=== PATIENT | male | born 1950 | race Caucasian/White ===

== ENCOUNTER 2021-02-22 12:35 | Inpatient (IN) ==
[2021-02-22] MEDS ORDERED: SODIUM CHLORIDE 0.9% 1,000 ML IV STA (13:13)
[2021-02-22] MEDS ORDERED: ALBUTEROL/IPRATROPIUM 3 ML NEB RESP TX STA (13:13)
[2021-02-22] MEDS ORDERED: DEXAMETHASONE 4 MG/1 ML VIAL IV STA (13:14)
[2021-02-22 14:04] LABS: Basophils # 0.1 10*3/uL (0.0-0.2); Basophils % 0.5 % (0.0-0.8); Eosinophils # 0.7 10*3/uL (0.0-0.87); Eosinophils % 4.7 % (0.00-10.9); Hematocrit 41.2 VOL% (42.0-52.0); Immature Granulocytes % 0.6 %; Immature Granulocytes Absolute 0.09 #; Lymphocytes # 2.3 10*3/uL (1.4-4.0); Lymphocytes % 15.7 % (21.2-54.2); Mean Corpuscular HGB Conc 36.4 GM/DL (32-36); Mean Corpuscular Volume 87.3 FL (87-102); Mean Platelet Volume 9.4 FL (9.6-12.0); Neutrophils % 69.5 % (38.7-73.9); Platelet Count 295 T/CUMM (130-400); Red Blood Count 4.72 MC/CUMM (3.8-5.5); Red Cell Distribution Width 11.8 % (9.3-17.3); White Blood Count 14.4 T/CUMM (4-12)
[2021-02-22 14:27] LABS: Albumin 3.8 G/DL (3.4-5.0); Bilirubin,Total 0.6 MG/DL (0.20-1.00); Calcium 9.5 MG/DL (8.5-10.1); Osmolality,Calculated 260.9 MOS/KG (273-304); Potassium 3.1 MMOL/L (3.5-5.1); Total Protein 7.5 G/DL (6.4-8.2)
[2021-02-22] MEDS ORDERED: LEVOFLOXACIN INJ 750 MG/150 ML PREMIX IV STA (15:35)
[2021-02-22] MEDS ORDERED: POTASSIUM CHLORIDE 20 MEQ TABLET PO STA (15:38)
[2021-02-22] MEDS ORDERED: DEXTROSE 50% 25 GM/50 ML VIAL IV PRN (18:08)
[2021-02-22] MEDS ORDERED: ACETAMINOPHEN 325 MG TABLET PO PRN (18:08)
[2021-02-22] MEDS ORDERED: MORPHINE 2 MG/1 ML SYRINGE IV PRN (18:08)
[2021-02-22] MEDS ORDERED: GLUCAGON 1 MG VIAL IM PRN (18:08)
[2021-02-22] MEDS: DEXAMETHASONE 4 MG/1 ML VIAL IV SCH (18:37)
[2021-02-22] MEDS: ALBUTEROL/IPRATROPIUM 3 ML NEB RESP TX SCH (20:31)
[2021-02-23] MEDS: ALBUTEROL/IPRATROPIUM 3 ML NEB RESP TX SCH ×4 (00:54→19:33)
[2021-02-23 05:24] LABS: Basophils % 0.1 % (0.0-0.8); Eosinophils % 0.1 % (0.00-10.9); Hematocrit 38.9 VOL% (42.0-52.0); Immature Granulocytes % 1.1 %; Immature Granulocytes Absolute 0.13 #; Lymphocytes # 1.1 10*3/uL (1.4-4.0); Mean Corpuscular Volume 87.8 FL (87-102); Mean Platelet Volume 9.6 FL (9.6-12.0); Monocytes % 4.1 % (1.7-12.7); Neutrophils % 85.6 % (38.7-73.9); Platelet Count 259 T/CUMM (130-400); Red Blood Count 4.43 MC/CUMM (3.8-5.5); Red Cell Distribution Width 11.6 % (9.3-17.3); White Blood Count 11.8 T/CUMM (4-12)
[2021-02-23 05:47] LABS: Calcium 9.6 MG/DL (8.5-10.1); Osmolality,Calculated 271.4 MOS/KG (273-304); Potassium 3.2 MMOL/L (3.5-5.1)
[2021-02-23] MEDS: DEXAMETHASONE 4 MG/1 ML VIAL IV SCH ×2 (06:40→18:07)
[2021-02-23] MEDS ORDERED: MEPERIDINE 25 MG/1 ML VIAL IM ONE (09:18)
[2021-02-23] MEDS ORDERED: diphenhydrAMINE 50 MG/1 ML VIAL IM ONE (09:19)
[2021-02-23] MEDS ORDERED: BENZONATATE 100 MG CAPSULE PO ONE (09:19)
[2021-02-23] MEDS ORDERED: LIDOCAINE 1% 50 ML VIAL MISC INJ ONE (10:00)
[2021-02-23] MEDS ORDERED: LIDOCAINE 2% VISCOUS 100 ML BOTTLE SWISH/SWAL ONE (10:00)
[2021-02-23] MEDS ORDERED: LIDOCAINE 2% 20 ML VIAL RESP TX ONE (10:00)
[2021-02-23] MEDS: ATORVASTATIN 20 MG TABLET PO SCH (11:54)
[2021-02-23] MEDS: METOPROLOL TARTRATE 100 MG TABLET PO SCH ×2 (11:54→21:13)
[2021-02-23] MEDS: ASPIRIN EC 81 MG TABLET PO SCH (11:54)
[2021-02-23] MEDS: CHLORTHALIDONE 25 MG TABLET PO SCH (11:54)
[2021-02-23] MEDS: POTASSIUM CHLORIDE 20 MEQ TABLET PO PRN ×2 (13:53→17:41)
[2021-02-23] MEDS: LEVOFLOXACIN INJ 750 MG/150 ML PREMIX IV SCH (18:09)
[2021-02-23] MEDS: POTASSIUM CHLORIDE 20 MEQ TABLET PO SCH (21:13)
[2021-02-24] MEDS: ALBUTEROL/IPRATROPIUM 3 ML NEB RESP TX SCH ×4 (00:48→19:20)
[2021-02-24 06:05] LABS: Basophils % 0.1 % (0.0-0.8); Hematocrit 38.5 VOL% (42.0-52.0); Hemoglobin 13.5 GM/DL (14.0-18.0); Immature Granulocytes Absolute 0.23 #; Lymphocytes # 1.3 10*3/uL (1.4-4.0); Lymphocytes % 5.7 % (21.2-54.2); Mean Corpuscular HGB Conc 35.1 GM/DL (32-36); Mean Corpuscular Volume 90.2 FL (87-102); Mean Platelet Volume 9.5 FL (9.6-12.0); Monocytes % 6.3 % (1.7-12.7); Neutrophils % 86.9 % (38.7-73.9); Platelet Count 275 T/CUMM (130-400); Red Blood Count 4.27 MC/CUMM (3.8-5.5); Red Cell Distribution Width 11.7 % (9.3-17.3)
[2021-02-24] MEDS: DEXAMETHASONE 4 MG/1 ML VIAL IV SCH (06:12)
[2021-02-24 06:29] LABS: Calcium 9.5 MG/DL (8.5-10.1); Osmolality,Calculated 272.5 MOS/KG (273-304); Potassium 3.4 MMOL/L (3.5-5.1)
[2021-02-24 06:43] LABS: Microcytosis 1+; Platelet Estimate Normal
[2021-02-24 06:44] LABS: Ovalocytes Slight
[2021-02-24] MEDS: POTASSIUM CHLORIDE 20 MEQ TABLET PO PRN ×2 (07:13→12:50)
[2021-02-24] MEDS: ASPIRIN EC 81 MG TABLET PO SCH (09:09)
[2021-02-24] MEDS: METOPROLOL TARTRATE 100 MG TABLET PO SCH ×2 (09:10→20:52)
[2021-02-24] MEDS: ATORVASTATIN 20 MG TABLET PO SCH (09:10)
[2021-02-24] MEDS: CHLORTHALIDONE 25 MG TABLET PO SCH (09:11)
[2021-02-24] MEDS: POTASSIUM CHLORIDE 20 MEQ TABLET PO SCH ×2 (09:11→20:53)
[2021-02-24] MEDS: CEFEPIME 1,000 MG in SODIUM CHLORIDE 0.9% 100 ML IV SCH ×3 (12:49→23:19)
[2021-02-24] MEDS: LEVOFLOXACIN INJ 750 MG/150 ML PREMIX IV SCH (16:57)
[2021-02-25] MEDS: ALBUTEROL/IPRATROPIUM 3 ML NEB RESP TX SCH ×3 (00:20→13:53)
[2021-02-25] MEDS: ZALEPLON 5 MG CAPSULE PO PRN ×2 (00:38→21:15)
[2021-02-25 05:28] LABS: Basophils % 0.2 % (0.0-0.8); Eosinophils % 0.1 % (0.00-10.9); Hematocrit 36.5 VOL% (42.0-52.0); Hemoglobin 12.9 GM/DL (14.0-18.0); Immature Granulocytes % 2.4 %; Immature Granulocytes Absolute 0.46 #; Lymphocytes # 1.9 10*3/uL (1.4-4.0); Lymphocytes % 9.9 % (21.2-54.2); Mean Corpuscular HGB Conc 35.3 GM/DL (32-36); Mean Corpuscular Volume 90.1 FL (87-102); Mean Platelet Volume 9.6 FL (9.6-12.0); Monocytes % 7.9 % (1.7-12.7); Neutrophils % 79.5 % (38.7-73.9); Platelet Count 250 T/CUMM (130-400); Red Blood Count 4.05 MC/CUMM (3.8-5.5); Red Cell Distribution Width 11.7 % (9.3-17.3)
[2021-02-25 05:57] LABS: Blood Urea Nitrogen 18 MG/DL (7-18); Calcium 9.1 MG/DL (8.5-10.1); Carbon Dioxide 32 MMOL/L (21-32); Estimated Glom Filtration Rate 102 ML/MIN; Glucose 169 MG/DL (74-106); Osmolality,Calculated 269.5 MOS/KG (273-304); Sodium 132 MMOL/L (136-145)
[2021-02-25] MEDS: CEFEPIME 1,000 MG in SODIUM CHLORIDE 0.9% 100 ML IV SCH ×4 (06:29→23:19)
[2021-02-25] MEDS ORDERED: DEXAMETHASONE 4 MG TABLET PO SCH (09:00)
[2021-02-25] MEDS: DEXAMETHASONE 4 MG TABLET PO SCH (09:18)
[2021-02-25] MEDS: ASPIRIN EC 81 MG TABLET PO SCH (09:18)
[2021-02-25] MEDS: POTASSIUM CHLORIDE 20 MEQ TABLET PO SCH ×2 (09:19→21:16)
[2021-02-25] MEDS: ATORVASTATIN 20 MG TABLET PO SCH (09:19)
[2021-02-25] MEDS: METOPROLOL TARTRATE 100 MG TABLET PO SCH ×2 (09:19→21:15)
[2021-02-25] MEDS: CHLORTHALIDONE 25 MG TABLET PO SCH (09:20)
[2021-02-26] MEDS: ALBUTEROL/IPRATROPIUM 3 ML NEB RESP TX SCH ×5 (00:40→19:20)
[2021-02-26] MEDS: CEFEPIME 1,000 MG in SODIUM CHLORIDE 0.9% 100 ML IV SCH ×4 (05:17→23:52)
[2021-02-26 05:40] LABS: Basophils # 0.1 10*3/uL (0.0-0.2); Basophils % 0.7 % (0.0-0.8); Eosinophils # 0.2 10*3/uL (0.0-0.87); Eosinophils % 1.3 % (0.00-10.9); Hematocrit 38.3 VOL% (42.0-52.0); Hemoglobin 13.6 GM/DL (14.0-18.0); Immature Granulocytes % 5.1 %; Immature Granulocytes Absolute 0.79 #; Lymphocytes # 2.7 10*3/uL (1.4-4.0); Lymphocytes % 17.4 % (21.2-54.2); Mean Corpuscular HGB Conc 35.5 GM/DL (32-36); Mean Corpuscular Volume 90.3 FL (87-102); Mean Platelet Volume 9.2 FL (9.6-12.0); Monocytes % 8.5 % (1.7-12.7); Platelet Count 233 T/CUMM (130-400); Red Blood Count 4.24 MC/CUMM (3.8-5.5); Red Cell Distribution Width 11.8 % (9.3-17.3); White Blood Count 15.4 T/CUMM (4-12)
[2021-02-26 06:05] LABS: Calcium 9.4 MG/DL (8.5-10.1); Osmolality,Calculated 272.4 MOS/KG (273-304); Potassium 4.7 MMOL/L (3.5-5.1)
[2021-02-26 06:08] LABS: Lymphocytes 22 % (20-55); Microcytosis 1+; Platelet Estimate Adequate; Segmented Neutrophils 76 % (50-85); Total Cells Counted 100
[2021-02-26] MEDS: CHLORTHALIDONE 25 MG TABLET PO SCH ×2 (09:07→10:02)
[2021-02-26] MEDS: POTASSIUM CHLORIDE 20 MEQ TABLET PO SCH ×2 (09:07→21:12)
[2021-02-26] MEDS: ATORVASTATIN 20 MG TABLET PO SCH (09:07)
[2021-02-26] MEDS: METOPROLOL TARTRATE 100 MG TABLET PO SCH ×2 (09:07→21:13)
[2021-02-26] MEDS: ASPIRIN EC 81 MG TABLET PO SCH (09:07)
[2021-02-26] MEDS: ENOXAPARIN 40 MG/0.4 ML SYRINGE SUBCUT SCH (11:03)
[2021-02-26] MEDS: ZALEPLON 5 MG CAPSULE PO PRN (21:23)
[2021-02-27] MEDS: ALBUTEROL/IPRATROPIUM 3 ML NEB RESP TX SCH ×3 (00:30→12:54)
[2021-02-27] MEDS: CEFEPIME 1,000 MG in SODIUM CHLORIDE 0.9% 100 ML IV SCH ×2 (05:44→12:08)
[2021-02-27 09:07] LABS: Basophils # 0.2 10*3/uL (0.0-0.2); Basophils % 1.4 % (0.0-0.8); Eosinophils % 7.7 % (0.00-10.9); Hematocrit 41.5 VOL% (42.0-52.0); Hemoglobin 14.8 GM/DL (14.0-18.0); Immature Granulocytes % 5.8 %; Immature Granulocytes Absolute 0.76 #; Lymphocytes # 2.7 10*3/uL (1.4-4.0); Lymphocytes % 20.7 % (21.2-54.2); Mean Corpuscular HGB Conc 35.7 GM/DL (32-36); Mean Corpuscular Volume 88.7 FL (87-102); Mean Platelet Volume 9.5 FL (9.6-12.0); Monocytes % 8.1 % (1.7-12.7); Neutrophils % 56.3 % (38.7-73.9); Platelet Count 250 T/CUMM (130-400); Red Blood Count 4.68 MC/CUMM (3.8-5.5); Red Cell Distribution Width 11.8 % (9.3-17.3); White Blood Count 13.1 T/CUMM (4-12)
[2021-02-27 09:26] LABS: Eosinophils 8 % (0-10); Lymphocytes 24 % (20-55); Platelet Estimate Adequate; Segmented Neutrophils 67 % (50-85); Total Cells Counted 100
[2021-02-27] MEDS: ASPIRIN EC 81 MG TABLET PO SCH (09:31)
[2021-02-27] MEDS: ATORVASTATIN 20 MG TABLET PO SCH (09:31)
[2021-02-27] MEDS: METOPROLOL TARTRATE 100 MG TABLET PO SCH (09:31)
[2021-02-27] MEDS: DEXAMETHASONE 4 MG TABLET PO SCH (09:31)
[2021-02-27] MEDS: POTASSIUM CHLORIDE 20 MEQ TABLET PO SCH (09:31)
[2021-02-27] MEDS: ENOXAPARIN 40 MG/0.4 ML SYRINGE SUBCUT SCH (09:32)
[2021-02-27 09:41] LABS: Calcium 9.2 MG/DL (8.5-10.1); Osmolality,Calculated 270.5 MOS/KG (273-304); Potassium 3.1 MMOL/L (3.5-5.1)
[2021-02-27] MEDS: CHLORTHALIDONE 25 MG TABLET PO SCH (10:16)
[2021-02-27 11:25] VITALS: BP 143/88
== END 2021-02-27 13:07 | disposition home or self-care (01) | DRG 178 ==
LOC: EDUNIT# → EDBD → N.ED 12:35 → N.EDINP 15:51 → SUATTDRO 15:51 → N.3E 18:12
PROVIDERS: ADMIT Internal Medicine; ATTEND Hospitalist

== ENCOUNTER 2022-05-13 10:02 | Inpatient (IN) ==
[2022-05-13] MEDS ORDERED: SODIUM CHLORIDE 0.9% 500 ML IV STA (10:33)
[2022-05-13] MEDS ORDERED: methylPREDNISolone SOD SUC 125 MG/2 ML VIAL IV STA (10:33)
[2022-05-13 10:42] LABS: Basophils # 0.1 10*3/uL (0.0-0.2); Basophils % 0.7 % (0.0-0.8); Eosinophils # 0.6 10*3/uL (0.0-0.87); Hematocrit 47.2 VOL% (42.0-52.0); Hemoglobin 15.9 GM/DL (14.0-18.0); Immature Granulocytes % 0.9 %; Immature Granulocytes Absolute 0.09 #; Lymphocytes # 2.1 10*3/uL (1.4-4.0); Lymphocytes % 20.6 % (21.2-54.2); Mean Corpuscular HGB Conc 33.7 GM/DL (32-36); Mean Corpuscular Volume 91.8 FL (87-102); Mean Platelet Volume 9.6 FL (9.6-12.0); Monocytes # 0.9 10*3/uL (0.11-0.8); Monocytes % 8.7 % (1.7-12.7); Neutrophils % 63.1 % (38.7-73.9); Platelet Count 212 T/CUMM (130-400); Red Blood Count 5.14 MC/CUMM (3.8-5.5); Red Cell Distribution Width 12.5 % (9.3-17.3); White Blood Count 10.3 T/CUMM (4-12)
[2022-05-13] MEDS ORDERED: ALBUTEROL NEB SOLN 5 MG/ML 20 ML/BOTTLE CONT NEB SCH (11:00)
[2022-05-13 11:14] LABS: Albumin 4.4 G/DL (3.4-5.0); Bilirubin,Total 0.6 MG/DL (0.20-1.00); Osmolality,Calculated 280.5 MOS/KG (273-304); Potassium 3.7 MMOL/L (3.5-5.1); Total Protein 7.1 G/DL (6.4-8.2)
[2022-05-13] MEDS ORDERED: PIPERACILLIN/TAZOBACTAM 3,375 MG in SODIUM CHLORIDE 0.9% 100 ML IV STA (12:14)
[2022-05-13] MEDS ORDERED: ACETAMINOPHEN 325 MG TABLET PO PRN (13:06)
[2022-05-13] MEDS ORDERED: ONDANSETRON 4 MG/2 ML VIAL IV PRN (13:06)
[2022-05-13] MEDS ORDERED: hydrALAZINE 20 MG/1 ML VIAL IV PRN (13:06)
[2022-05-13] MEDS ORDERED: CLORAZEPATE 3.75 MG TABLET PO PRN (13:11)
[2022-05-13] MEDS ORDERED: TAMSULOSIN 0.4 MG CAPSULE PO PRN (13:11)
[2022-05-13] MEDS: LACTATED RINGERS 1,000 ML IV SCH (14:29)
[2022-05-13] MEDS: ENOXAPARIN 40 MG/0.4 ML SYRINGE SUBCUT SCH (14:29)
[2022-05-13] MEDS: LEVALBUTEROL 1.25 MG/3 ML NEB RESP TX SCH (19:18)
[2022-05-13] MEDS: methylPREDNISolone SOD SUC 40 MG/1 ML VIAL IV SCH (19:26)
[2022-05-14] MEDS: LEVALBUTEROL 1.25 MG/3 ML NEB RESP TX SCH ×4 (00:10→19:41)
[2022-05-14] MEDS: LACTATED RINGERS 1,000 ML IV SCH ×3 (00:12→23:30)
[2022-05-14] MEDS: METOPROLOL TARTRATE 50 MG TABLET PO PRN ×2 (00:14→09:35)
[2022-05-14] MEDS: methylPREDNISolone SOD SUC 40 MG/1 ML VIAL IV SCH ×3 (03:46→18:14)
[2022-05-14 04:48] LABS: Basophils % 0.2 % (0.0-0.8); Eosinophils % 0.1 % (0.00-10.9); Hematocrit 42.1 VOL% (42.0-52.0); Hemoglobin 14.2 GM/DL (14.0-18.0); Immature Granulocytes % 0.7 %; Immature Granulocytes Absolute 0.08 #; Lymphocytes % 8.9 % (21.2-54.2); Mean Corpuscular HGB Conc 33.7 GM/DL (32-36); Mean Corpuscular Volume 91.9 FL (87-102); Mean Platelet Volume 9.5 FL (9.6-12.0); Monocytes # 0.8 10*3/uL (0.11-0.8); Neutrophils % 83.1 % (38.7-73.9); Platelet Count 222 T/CUMM (130-400); Red Blood Count 4.58 MC/CUMM (3.8-5.5); Red Cell Distribution Width 12.4 % (9.3-17.3); White Blood Count 11.4 T/CUMM (4-12)
[2022-05-14 05:07] LABS: Calcium 9.4 MG/DL (8.5-10.1); Osmolality,Calculated 285.4 MOS/KG (273-304); Potassium 4.3 MMOL/L (3.5-5.1)
[2022-05-14] MEDS ORDERED: AZITHROMYCIN 250 MG TABLET PO SCH (09:00)
[2022-05-14] MEDS: ASPIRIN EC 81 MG TABLET PO SCH (09:34)
[2022-05-14] MEDS: PANTOPRAZOLE 40 MG TABLET PO SCH (09:34)
[2022-05-14] MEDS: ATORVASTATIN 20 MG TABLET PO SCH (09:34)
[2022-05-14] MEDS ORDERED: GLUCAGON 1 MG VIAL IM PRN (10:16)
[2022-05-14] MEDS ORDERED: DEXTROSE 10% 250 ML BAG IV PRN (10:16)
[2022-05-14] MEDS: MONTELUKAST 10 MG TABLET PO SCH (11:11)
[2022-05-14] MEDS: MEROPENEM 500 MG in SODIUM CHLORIDE 0.9% 100 ML IV SCH ×3 (11:16→23:29)
[2022-05-14] MEDS: INSULIN LISPRO 100 UNIT/ML SUBCUT SCH ×3 (12:28→23:30)
[2022-05-14] MEDS: ENOXAPARIN 40 MG/0.4 ML SYRINGE SUBCUT SCH (13:41)
[2022-05-15] MEDS: LEVALBUTEROL 1.25 MG/3 ML NEB RESP TX SCH ×4 (00:59→19:08)
[2022-05-15 02:29] LABS: Calcium 9.2 MG/DL (8.5-10.1); Osmolality,Calculated 287.8 MOS/KG (273-304); Potassium 4.2 MMOL/L (3.5-5.1)
[2022-05-15] MEDS: MEROPENEM 500 MG in SODIUM CHLORIDE 0.9% 100 ML IV SCH ×4 (04:48→21:30)
[2022-05-15] MEDS: methylPREDNISolone SOD SUC 40 MG/1 ML VIAL IV SCH ×3 (04:48→20:50)
[2022-05-15] MEDS: INSULIN LISPRO 100 UNIT/ML SUBCUT SCH ×5 (07:15→21:30)
[2022-05-15] MEDS: ATORVASTATIN 20 MG TABLET PO SCH (09:49)
[2022-05-15] MEDS: ASPIRIN EC 81 MG TABLET PO SCH (09:49)
[2022-05-15] MEDS: MONTELUKAST 10 MG TABLET PO SCH (09:49)
[2022-05-15] MEDS: PANTOPRAZOLE 40 MG TABLET PO SCH (09:49)
[2022-05-15] MEDS: LACTATED RINGERS 1,000 ML IV SCH (10:15)
[2022-05-15] MEDS: metFORMIN 500 MG TABLET PO SCH ×2 (12:44→17:00)
[2022-05-15] MEDS: ENOXAPARIN 40 MG/0.4 ML SYRINGE SUBCUT SCH (14:30)
[2022-05-16] MEDS: LEVALBUTEROL 1.25 MG/3 ML NEB RESP TX SCH ×2 (00:35→07:06)
[2022-05-16 02:37] LABS: Basophils % 0.1 % (0.0-0.8); Hematocrit 40.6 VOL% (42.0-52.0); Immature Granulocytes % 1.2 %; Immature Granulocytes Absolute 0.19 #; Lymphocytes % 6.5 % (21.2-54.2); Mean Corpuscular HGB Conc 34.5 GM/DL (32-36); Mean Corpuscular Volume 89.6 FL (87-102); Mean Platelet Volume 9.5 FL (9.6-12.0); Monocytes # 0.7 10*3/uL (0.11-0.8); Monocytes % 4.6 % (1.7-12.7); Neutrophils % 87.6 % (38.7-73.9); Platelet Count 206 T/CUMM (130-400); Red Blood Count 4.53 MC/CUMM (3.8-5.5); Red Cell Distribution Width 12.1 % (9.3-17.3); White Blood Count 15.6 T/CUMM (4-12)
[2022-05-16 02:59] LABS: Calcium 9.4 MG/DL (8.5-10.1); Potassium 4.3 MMOL/L (3.5-5.1)
[2022-05-16] MEDS: methylPREDNISolone SOD SUC 40 MG/1 ML VIAL IV SCH ×2 (03:50→10:44)
[2022-05-16] MEDS: MEROPENEM 500 MG in SODIUM CHLORIDE 0.9% 100 ML IV SCH ×2 (04:30→10:44)
[2022-05-16 07:50] VITALS: BP 137/79
[2022-05-16] MEDS: INSULIN LISPRO 100 UNIT/ML SUBCUT SCH ×2 (08:25→11:39)
[2022-05-16] MEDS: ASPIRIN EC 81 MG TABLET PO SCH (08:26)
[2022-05-16] MEDS: MONTELUKAST 10 MG TABLET PO SCH (08:26)
[2022-05-16] MEDS: metFORMIN 500 MG TABLET PO SCH (08:26)
[2022-05-16] MEDS: ATORVASTATIN 20 MG TABLET PO SCH (08:26)
[2022-05-16] MEDS: PANTOPRAZOLE 40 MG TABLET PO SCH (08:26)
== END 2022-05-16 11:54 | disposition home health service (06) | DRG 191 ==
LOC: N.ED 10:02 → N.EDINP 10:02 → SUATTDRO 13:06 → N.2W 21:07 → SUATTDRO 05-15 08:37
PROVIDERS: ADMIT Emergency Medicine; ATTEND Internal Medicine Geriatric Medicine